=== PATIENT | female | born 1990 | race Two or more races ===

== ENCOUNTER 2018-08-30 22:45 | Emergency (ER) | payer SELFPAY ==
[~2018-08-30] VITALS: Ht 167.6 cm; Wt 86.2 kg
[2018-08-30 22:56] VITALS: BP 155/84
== END 2018-08-31 00:46 | disposition left against medical advice (07) ==
LOC: ER 22:50
DX: M79.644 Pain in right finger(s) (principal); Z53.21 Procedure and treatment not carried out due to patient leaving prior to being seen by health care provider
CPT/HCPCS: 73130

== ENCOUNTER 2018-08-31 06:09 | Emergency (ER) | payer SELFPAY ==
[~2018-08-31] VITALS: Ht 167.6 cm; Wt 86.2 kg
[2018-08-31 06:35] VITALS: BP 126/73
[2018-08-31] MEDS ORDERED: IBUPROFEN 800 MG TAB PO ONE (06:45)
== END 2018-08-31 07:02 | disposition home or self-care (01) ==
LOC: ER 06:09
DX: S62.642A Nondisplaced fracture of proximal phalanx of right middle finger, initial encounter for closed fracture (principal); X58.XXXA Exposure to other specified factors, initial encounter; Y93.89 Activity, other specified; Y99.8 Other external cause status; Y92.89 Other specified places as the place of occurrence of the external cause
CPT/HCPCS: 29130